=== PATIENT | male | born 1935 | race African-American/Black ===

== ENCOUNTER 2018-12-31 11:23 | Inpatient (IN) ==
[2018-12-31] MEDS ORDERED: MECLIZINE 25 MG TABLET PO STA (11:56)
[2018-12-31] MEDS ORDERED: ONDANSETRON 4 MG/2 ML VIAL IV STA (11:56)
[2018-12-31 12:53] LABS: Basophils % 0.1 % (0.0-0.8); Eosinophils % 0.1 % (0.00-10.9); Hematocrit 29.1 VOL% (42.0-52.0); Hemoglobin 8.5 GM/DL (14.0-18.0); Immature Granulocytes % 1.3 %; Immature Granulocytes Absolute 0.09 #; Lymphocytes # 0.7 10*3/uL (1.4-4.0); Lymphocytes % 9.6 % (21.2-54.2); Mean Corpuscular HGB Conc 29.2 GM/DL (32-36); Mean Corpuscular Volume 83.1 FL (87-102); Mean Platelet Volume 11.5 FL (9.6-12.0); Monocytes % 25.6 % (1.7-12.7); Neutrophils % 63.3 % (38.7-73.9); Platelet Count 130 T/CUMM (130-400); Red Cell Distribution Width 18.2 % (9.3-17.3); White Blood Count 7.2 T/CUMM (4-12)
[2018-12-31 13:00] LABS: INR 1.2; PT Patient Result 12.7 SECS
[2018-12-31 13:21] LABS: Anisocytosis 1+; Band Neutrophils 8 % (0-10); Lymphocytes 10 % (20-55); Ovalocytes 1+; Platelet Estimate Adequate; Poikilocytosis 1+; Segmented Neutrophils 67 % (50-85); Total Cells Counted 100
[2018-12-31 13:22] LABS: Hypochromasia Slight; Tear Drop Cells Few
[2018-12-31 13:24] LABS: Alanine Aminotransferase 14 U/L (16-61); Albumin 3.2 G/DL (3.4-5.0); Alkaline Phosphatase 105 U/L (45-117); Aspartate Amino Transferase 16 U/L (0-37); Blood Urea Nitrogen 29 MG/DL (7-18); Calcium 8.9 MG/DL (8.5-10.1); Glucose 182 MG/DL (74-106); Osmolality,Calculated 285.7 MOS/KG (273-304); Total Protein 6.9 G/DL (6.4-8.3); Troponin I < 0.015 NG/ML (0.00-0.045)
[2018-12-31] MEDS ORDERED: FUROSEMIDE 40 MG/4 ML VIAL IV STA (13:49)
[2018-12-31] MEDS ORDERED: ALBUTEROL/IPRATROPIUM 3 ML NEB RESP TX STA (13:49)
[2018-12-31 13:50] LABS: Apearance,Urine CLEAR (Clear); Bilirubin,Urine Negative (Negative); Blood, Urine Negative (Negative); Glucose,Urine (UA) Negative (Negative); Ketones,Urine Negative (Negative); Mucus,Urine Occasional /LPF (Occasional); Nitrite,Urine Negative (Negative); Protein,Urine Negative; RBC,Urine 1 /HPF (0-4); Squamous Epithelial Cell,Urine Occasional /HPF (0-10); Urine Color Yellow (Yellow); Urine Specific Gravity 1.012 (1.001-1.035)
[2018-12-31] MEDS ORDERED: GLUCAGON 1 MG VIAL IM PRN (16:31)
[2018-12-31] MEDS ORDERED: ONDANSETRON 4 MG/2 ML VIAL IV PRN (16:31)
[2018-12-31] MEDS ORDERED: DEXTROSE 50% 25 GM/50 ML SYRINGE IV PRN (16:31)
[2018-12-31] MEDS ORDERED: ENOXAPARIN 40 MG/0.4 ML SYRINGE SUBCUT SCH (21:00)
[2018-12-31] MEDS: METOPROLOL TARTRATE 50 MG TABLET PO SCH (21:35)
[2018-12-31] MEDS: INSULIN LISPRO 100 UNIT/ML SUBCUT SCH (21:35)
[2018-12-31] MEDS: POTASSIUM CHLORIDE 20 MEQ TABLET PO SCH (21:35)
[2018-12-31] MEDS: FUROSEMIDE 40 MG/4 ML VIAL IV SCH (21:35)
[2018-12-31] MEDS: GABAPENTIN 300 MG CAPSULE PO SCH (21:36)
[2019-01-01 05:42] LABS: Osmolality,Calculated 291.5 MOS/KG (273-304); Risk Ratio 3.38; Thyroid Stimulating Hormone 0.86 uIU/ml (0.358-3.74); VLDL CHOLESTEROL 15.2 MG/DL
[2019-01-01 05:58] LABS: Basophils % 0.1 % (0.0-0.8); Eosinophils % 0.1 % (0.00-10.9); Hemoglobin 8.4 GM/DL (14.0-18.0); Immature Granulocytes % 0.4 %; Immature Granulocytes Absolute 0.03 #; Lymphocytes % 13.2 % (21.2-54.2); Mean Corpuscular Volume 84.3 FL (87-102); Monocytes % 38.9 % (1.7-12.7); Neutrophils % 47.3 % (38.7-73.9); Platelet Count 142 T/CUMM (130-400); Red Blood Count 3.56 MC/CUMM (3.8-5.5); White Blood Count 7.7 T/CUMM (4-12)
[2019-01-01 06:37] LABS: Eosinophils 1 % (0-10); Lymphocytes 31 % (20-55); Segmented Neutrophils 49 % (50-85); Total Cells Counted 100
[2019-01-01 06:38] LABS: Platelet Estimate Normal
[2019-01-01] MEDS: METOPROLOL TARTRATE 50 MG TABLET PO SCH ×2 (09:14→20:33)
[2019-01-01] MEDS: GABAPENTIN 300 MG CAPSULE PO SCH ×3 (09:14→20:33)
[2019-01-01] MEDS: FINASTERIDE 5 MG TABLET PO SCH (09:14)
[2019-01-01] MEDS: MONTELUKAST 10 MG TABLET PO SCH (09:14)
[2019-01-01] MEDS: INSULIN LISPRO 100 UNIT/ML SUBCUT SCH ×4 (09:15→22:12)
[2019-01-01] MEDS: PANTOPRAZOLE 40 MG TABLET PO SCH (09:15)
[2019-01-01] MEDS: POTASSIUM CHLORIDE 20 MEQ TABLET PO SCH ×2 (09:15→20:33)
[2019-01-01] MEDS: CHOLECALCIFEROL 1,000 UNIT TABLET PO SCH (09:15)
[2019-01-01] MEDS: FUROSEMIDE 40 MG/4 ML VIAL IV SCH (09:16)
[2019-01-01] MEDS ORDERED: valACYclovir 500 MG TABLET PO ONE (13:57)
[2019-01-01] MEDS: INSULIN GLARGINE 100 UNIT/ML SUBCUT SCH (18:18)
[2019-01-01] MEDS: CEFAZOLIN IV SCH ×2 (18:20→22:13)
[2019-01-01] MEDS: SODIUM CHLORIDE 0.9% IV SCH ×2 (18:20→22:13)
[2019-01-01] MEDS: SKIN HEALING OINT (AQUAPHOR) 50 GM TUBE TOP SCH (19:00)
[2019-01-02] MEDS: SODIUM CHLORIDE 0.9% IV SCH ×2 (03:42→11:38)
[2019-01-02] MEDS: CEFAZOLIN IV SCH ×2 (03:42→11:38)
[2019-01-02 05:19] LABS: Basophils % 0.1 % (0.0-0.8); Eosinophils % 0.1 % (0.00-10.9); Hematocrit 28.6 VOL% (42.0-52.0); Hemoglobin 8.2 GM/DL (14.0-18.0); Immature Granulocytes % 0.7 %; Immature Granulocytes Absolute 0.05 #; Lymphocytes # 1.3 10*3/uL (1.4-4.0); Lymphocytes % 17.8 % (21.2-54.2); Mean Corpuscular HGB Conc 28.7 GM/DL (32-36); Mean Corpuscular Volume 83.9 FL (87-102); Mean Platelet Volume 12.1 FL (9.6-12.0); Monocytes % 35.7 % (1.7-12.7); Neutrophils % 45.6 % (38.7-73.9); Platelet Count 145 T/CUMM (130-400); Red Blood Count 3.41 MC/CUMM (3.8-5.5); Red Cell Distribution Width 17.9 % (9.3-17.3); White Blood Count 7.1 T/CUMM (4-12)
[2019-01-02 05:34] LABS: Eosinophils 1 % (0-10); Lymphocytes 21 % (20-55); Segmented Neutrophils 44 % (50-85); Total Cells Counted 100
[2019-01-02 05:35] LABS: Elliptocytes Few; Hypochromasia 1+; Platelet Estimate Adequate
[2019-01-02 05:39] LABS: Calcium 8.5 MG/DL (8.5-10.1); Osmolality,Calculated 288.4 MOS/KG (273-304)
[2019-01-02] MEDS ORDERED: VANCOMYCIN INJ 1,750 MG in SODIUM CHLORIDE 0.9% 500 ML IV ONE (06:30)
[2019-01-02] MEDS: INSULIN LISPRO 100 UNIT/ML SUBCUT SCH ×2 (08:36→11:38)
[2019-01-02] MEDS: METOPROLOL TARTRATE 50 MG TABLET PO SCH (08:37)
[2019-01-02] MEDS ORDERED: BUPIVACAINE MPF 0.25% /EPI 30 ML VIAL ONE (08:59)
[2019-01-02] MEDS ORDERED: LIDOCAINE 1%/EPI INJ 20 ML VIAL ONE (08:59)
[2019-01-02] MEDS ORDERED: FUROSEMIDE 40 MG/4 ML VIAL IV SCH (09:00)
[2019-01-02] MEDS ORDERED: ZINC OXIDE PASTE 113 GM TUBE TOP SCH (09:00)
[2019-01-02] MEDS ORDERED: LACTATED RINGERS 1,000 ML IV SCH (09:30)
[2019-01-02] MEDS ORDERED: PROPOFOL 200 MG/20 ML VIAL IV ONE (10:15)
[2019-01-02] MEDS ORDERED: fentaNYL 100 MCG/2 ML VIAL ONE (10:16)
[2019-01-02 11:26] VITALS: BP 154/84
[2019-01-02] MEDS: POTASSIUM CHLORIDE 20 MEQ TABLET PO SCH (11:26)
[2019-01-02] MEDS: CHOLECALCIFEROL 1,000 UNIT TABLET PO SCH (11:26)
[2019-01-02] MEDS: MONTELUKAST 10 MG TABLET PO SCH (11:26)
[2019-01-02] MEDS: PANTOPRAZOLE 40 MG TABLET PO SCH (11:27)
[2019-01-02] MEDS: GABAPENTIN 300 MG CAPSULE PO SCH (11:27)
[2019-01-02] MEDS: FINASTERIDE 5 MG TABLET PO SCH (11:28)
[2019-01-02] MEDS: INSULIN GLARGINE 100 UNIT/ML SUBCUT SCH (11:28)
[2019-01-02] MEDS: SKIN HEALING OINT (AQUAPHOR) 50 GM TUBE TOP SCH (11:29)
== END 2019-01-02 16:49 | disposition home health service (06) | DRG 291 ==
LOC: EDBD → EDUNIT# → N.ED 11:23 → N.EDINP 14:52 → N.TELES 16:57 → N.4E 16:59 → N.TELES 16:59
PROVIDERS: ADMIT Internal Medicine; ATTEND Internal Medicine